=== PATIENT | male | born 1960 | race Caucasian/White ===

== ENCOUNTER → 2020-08-17 12:04 | Outpatient (CLI) | payer OTHER, SELFPAY ==
[2020-08-17 13:41] LABS: BUN Creatinine Ratio 17.4 (6-22); Blood Urea Nitrogen 20 mg/dL (9-20); Calcium 9.9 mg/dL (8.4-10.2); Carbon Dioxide 25 mmol/L (22-32); Chloride 105 mmol/L (98-107); Estimated Glomerular Filt Rate > 60.0 mL/min (>60); Glucose 89 mg/dL (80-110); HEMOLYSIS < 15 (0-50); Potassium 4.8 mmol/L (3.4-5.1); Sodium 139 mmol/L (137-145)
[2020-08-17 14:12] LABS: Prostate Specific Antigen 11.1 ng/mL (0.10-4.00)
--- NOTE | 2020-08-17 14:27 | DI.CT.S_ITS ---
PROCEDURE: CT CHEST ABD PEL W CON INDICATIONS: Malignant neoplasm of prostate TECHNIQUE: After the administration of oral and intravenous contrast, axial sections acquired from the supraclavicular neck to the pubic symphysis. Coronal and sagittal reformats were performed. For radiation dose reduction, the following was used: automated exposure control, adjustment of mA and/or kV according to patient size. COMPARISON:[place], [place], [place] BONE SCAN WHOLE BODY, 02/21/2020, 13:03. FINDINGS: Image quality: Excellent. CHEST: Lungs and pleura: No acute air space opacities. No pleural effusions or pneumothorax. Central and peripheral airways are patent and normal in caliber. Mediastinum: Heart size is normal. No pericardial effusion. No mediastinal adenopathy by size criteria. Thoracic aorta and central pulmonary arteries are normal in size. Esophagus is normal in caliber. No hiatal hernia. The coronary arteries have atherosclerotic calcifications. Chest wall: No axillary or supraclavicular adenopathy by size criteria. Thyroid gland is normal . ABDOMEN: Solid organs: Liver: The liver has no mass or intrahepatic biliary ductal dilatation. There is a 2 centimeter cyst of the right lobe of the liver and a 1 centimeter cyst of the left lobe of the liver. The portal vein and hepatic veins are patent. Biliary: The gallbladder has no gallstones, pericholecystic fluid, gallbladder wall thickening, or surrounding inflammatory change. Pancreas: The pancreas has no mass or ductal dilatation. There is no surrounding inflammation. Spleen: Normal size. There are no masses. Adrenals: No hypertrophy or nodules. Kidneys: No obstructive calculus or hydronephrosis. No solid mass. No cystic mass. Bowel: The distal esophagus and stomach are normal. The small bowel has a normal caliber and appearance. The terminal ileum is normal. The large bowel has a normal caliber and appearance. No free fluid or air. Nodes and vessels: No retroperitoneal or mesenteric adenopathy by size criteria. Aorta and inferior vena cava are normal in size. Abdominal wall: No abdominal wall mass or hernia. PELVIS: Genitourinary: The bladder has no wall thickening or mass. No bladder calcifications. The prostate is enlarged measuring 7.1 centimeters in diameter. Abdominal wall: No inguinal hernias or adenopathy. BONES: A 4 millimeter sclerotic focus in the right inferior pubic bone adjacent to the midline and a 4 millimeter sclerotic focus lateral to the right sacroiliac joint are likely small bone islands but small early foci of metastatic disease cannot be excluded. There is no prior imaging for comparison. The right hip has trochanteric femoral fixation. There are degenerative changes of both hips. The lumbar spine has mild degenerative changes. No vertebral body compression fractures. IMPRESSION: 1. A few 4 millimeter sclerotic foci in the pelvis as described above are likely bone islands, however cannot exclude small metastatic foci. 2. Otherwise no evidence of metastatic disease to the chest, abdomen, or pelvis. 3. Enlarged prostate. Dictated by: Francis Watkins M.D. on 08/17/2020 at 17:01 Approved by: Francis Watkins M.D. on 08/17/2020 at 17:17
== END ==
PROVIDERS: PCP Family Medicine; Referring Provider Specialist; Visit Provider Specialist
DX: C61 Malignant neoplasm of prostate (principal); R39.9 Unspecified symptoms and signs involving the genitourinary system
CPT/HCPCS: 36415; 71260; 74177; 80048; 84153

== ENCOUNTER → 2020-09-14 07:57 | Outpatient (CLI) | payer OTHER, SELFPAY ==
[2020-09-14 13:47] LABS: COVID19 -Nasal RAPID Negative (Negative)
== END ==
PROVIDERS: PCP Family Medicine; Referring Provider Specialist; Visit Provider Specialist
DX: Z20.822 Contact with and (suspected) exposure to COVID-19 (principal)
CPT/HCPCS: 87635

== ENCOUNTER 2020-09-17 07:22 | Inpatient (IN) | payer OTHER, SELFPAY ==
[2020-09-11 08:31] VITALS: BMI 34.9
[2020-09-17] VITALS (22 sets, daily range): BP systolic 54–146; BP diastolic 31–78; PULSE 65–117; RESP 12–18; TEMP 36.1–37.2; O2SAT 87–99; BMI 34.9
--- NOTE | 2020-09-17 | PATH_ITS ---
[facility] Accession Number: [id number] . 01 Material submitted: . PART A: pelvis - RIGHT PELVIC NODE PART B: pelvis - LEFT PELVIC NODE PART C: prostate - PROSTATE PART D: seminal vesicle - LEFT SEMINAL VESICLE . 02 Diagnosis: A. Right Pelvic Node, Dissection: Two lymph nodes negative for metastatic carcinoma (0/2) by H/E stain. . B. Left Pelvic Node, Dissection: Two lymph nodes negative for metastatic carcinoma (0/2) by H/E stain. . C. Prostate, Radical Retropubic Prostatectomy (Weight 68 grams): Positive for prostatic adenocarcinoma. . Please see Cancer Case Summary . D. Left Seminal Vesicle: Negative for tumor. . . CANCER CASE SUMMARY . Specimen: Radical retropubic prostatectomy Prostatic weight: 68 grams. Prostatic size in centimeters: 6.5 x 6.0 x 4.5 cm. . Tumor: Histologic type: Acinar adenocarcinoma. Histologic grade: Grade group 2 (Williams score 3+4=7/10). Percentage of pattern 4: 6-10% of invasive tumor. Minor tertiary pattern 5: Not applicable. Intraductal carcinoma: Not identified. Cribriform glands: Not identified. Treatment effect: Not identified. . Tumor quantitation Estimated percentage of prostate involved by tumor: 11-20%. Extraprostatic extension: Not identified. Urinary bladder neck invasion: Not identified. Seminal vesicle invasion: Not identified. Lymphovascular invasion: Not identified. . Margins Margin status: All margins negative for invasive carcinoma. . Regional lymph nodes Regional lymph node status: All regional lymph nodes negative for tumor. Number of lymph nodes examined: Four. . Distant metastasis: Cannot be determined (no additional tissue submitted for pathologic evaluation). . Pathologic stage classification (pTNM, AJCC 8th Edition): pT2 pN0 . Additional findings: Nodular prostatic hyperplasia, patchy chronic inflammation. [facility] 09/25/2020 1418 Local . 02 Electronically signed: . Negra Crews MD, Pathologist NPI- [id number] . 01 Gross description: . A. Received in formalin, labeled right pelvic node consists of a 4.0 x 2.6 x 1.5 cm escoto-yellow fragment of adipose tissue with a 2.9 x 1.5 x 1.0 cm escoto lymph node. The specimen is entirely submitted. . A1-A2: Lymph node, serially sectioned. A3: Remaining adipose tissue. . B. Received in formalin, labeled left pelvic node consists of two escoto-pink lymph nodes with attached adipose tissue measuring 1.5 x 1.0 x 0.9 cm and 4.1 x 2.0 x 0.9 cm. The specimen is entirely submitted. . B1: Smaller lymph node, serially sectioned. B2-B4: Larger lymph node, serially sectioned. B5: Remaining adipose tissue. . C. Received in formalin, labeled prostate consists of a 68-gram prostate measuring 6.0 cm from apex to base by 6.5 cm from right to left by 4.5 cm from anterior to posterior. The external surface is escoto-pink with fibrinous adhesions and focal cautery artifact. The partially attached right seminal vesicle measures 2.5 x 2.5 x 1.2 cm. The right and left vas differentia and left seminal vesicle are not identified. The specimen is inked as follows: Right anterior blue, right posterior green, left anterior yellow and left posterior black. The specimen is serially sectioned from apex to base into 11 slices to reveal escoto-pink, focally cystic cut surfaces with periurethral ill-defined nodularity. There are multiple red-brown corpora amylacea present ranging from 0.1-0.5 cm (within slices 4-6). Track Mechanic sections are submitted. . C1-C2: Slice 1, right apical margin, perpendicularly sectioned. C3-C4: Slice 1, left apical margin, perpendicularly sectioned. C5-C6: Slice 2, right prostate, bisected. C7-C8: Slice 2, left prostate, bisected. C9-C10: Slice 4, right prostate, bisected. C11-C12: Slice 4, left prostate, bisected. C13-C16: Slice 6, right prostate, quadrisected. C17-C19: Slice 6, left prostate, trisected. C20-C21: Slice 10, right prostate, bisected. C22-C23: Slice 10, left prostate, bisected. C24-C26: Slice 11, right base margin, perpendicularly sectioned. C27-C29: Slice 11, left base margin, perpendicularly sectioned. C30: Track Mechanic right seminal vesicle. . D. Received in formalin, labeled left seminal vesicle consists of a 3.0 x 2.0 x 1.5 cm escoto-pink disrupted seminal vesicle. Track Mechanic sections are submitted in cassette D1. . (EA:[id number]) /MRV 09/21/2020 1500 Local . 02 Microscopic: . An immunohistochemistry study is performed to evaluate the cells of interest. The control stains show appropriate reactivity. . RESULTS: Block C19: High molcular weight+p63 IHC stain: Positive around region of interest. . The presence of high molecular weight cytokeratin and p63 around the elements of interest mitigate against the presence of prostatic adenocarcinoma at this focus. . * This test was developed and its performance characteristics determined by [facility]. It has not been cleared or approved by the U.S. Food and Drug Administration. The FDA has determined that such clearance or approval is not necessary. This test is used for clinical purposes. It should not be regarded as investigational or for research . 02 Pathologist provided ICD-10: C61 . 02 CPT . 501920, 293125, 390518, 877371, [id number] Performed at: 01 [facility] Cytology [address] [id number] MD Aj Jin MD Phone: [phone] Performed at: [address] [id number] MD Katlin Schafer MD Phone: [phone]
[2020-09-17] MEDS: LACTATED RINGERS 1,000 ML 42 ML IV ×3 (08:19→12:02)
--- NOTE | 2020-09-17 08:38 | PM.PREOP ---
Pre-operative Note Interval Note History & Physical reviewed/Exam performed by Physician: Yes Changes to H&P: No
[2020-09-17 08:39] LABS: Hemoglobin 14.9 g/dL (13.5-17.5); Mean Corpuscular HGB Conc 33.7 % (30-36); Mean Corpuscular Hemoglobin 29.3 PG (26-34); Mean Corpuscular Volume 86.7 fL (80-100); Platelet Count 183 X10^3/uL (150-400); Red Blood Cell Count 5.08 X10^6/uL (4.5-5.9); Red Cell Distribution Width 13.7 % (11.6-14.8); White Blood Cell Count 6.6 X10^3/uL (4.5-11.0)
[2020-09-17] MEDS: CEFAZOLIN 1 GM VIAL 2 GM IV (09:50)
--- NOTE | 2020-09-17 10:43 | SUR.OPER ---
Supine on padded OR bed, head on pillow, arms secured on padded arm boards at <90 degrees abduction, legs uncrossed, pillow under knees tape over blanket at lower thigh, tape over blanket over lower legs. Iliac crest at break of table.
[2020-09-17] MEDS: BUPIVACAINE LIPOSOME 266 MG/20 ML VIAL INJ (10:52)
[2020-09-17] MEDS: ACETAMINOPHEN IV 1,000 MG/100 ML VIAL 400 MG IV (12:36)
--- NOTE | 2020-09-17 13:32 | P.OP_ITS ---
Operative Date/Time/Diagnoses Date of procedure: 09/17/20 Time of procedure: 13:32 Pre-op diagnosis: Prostate cancer Post-op diagnosis: same Procedure & Clinicians Procedure: 1. Radical retropubic prostatectomy and bilateral pelvic lymphadenectomy Same procedure as scheduled: Yes Indications: 1. Prostate cancer Mailing Machine Assistant: Cheryl Her Click Yes if Unassisted: No Anesthesia Type: General, Spinal (Duramorph spinal) and Local (1.33% Exparel) Operative Notes Findings: The abdominal wall tissue planes were unremarkable. The prostate was significantly enlarged, at least 60 g. Seminal vesicles were difficult to dissect due to probable reactive changes, but neoplasm cannot be ruled out. Closure Type: primary Specimen(s): other (1. Prostate with attached seminal vesicles 2. Bilateral pelvic lymph nodes) Applied: catheter (20. Chilean silicone catheter) and drain(s) (15. Chilean Gene drain) Estimated Blood Loss (mL): 300 Blood products transfused: none Tourniquet time (min): 0 Procedure in detail: The patient was positioned in supine and was administered general anesthesia following successful placement of Duramorph spinal anesthesia. The abdomen, genitalia, and groin were then prepped and draped in sterile fashion. A 20 [place]an Pérez catheter was then inserted lower urinary tract and placed to gravity drainage. A midline infraumbilical incision was then made in the midline low abdominal wall was divided using sharp, blunt, and cautery technique. The pelvic retroperitoneum was then entered and the space of Retzius and lateral pelvic sidewalls were then cleared of fat and loose attachments. Bilateral pelvic lymph node dissection was then undertaken using the same steps and maneuvers as follows: Thin adventitia overlying external iliac vein was identified, isolated and divided along its length. The tissue was then swept posteriorly and medially out of the obturator fossa. The LigaSure Impact device was used where needed for hemostasis and lymphostasis. Each james packet was then labeled as to their site of procurement and sent to pathology for routine gross and microscopic examination. The endopelvic fascia was then carefully divided on either side of the prostate. The dorsal venous complex was then isolated and divided using the LigaSure Impact device. The area of urethra between the prostatic apex in membranous segment was then identified, isolated and divided just distal to prostatic apex. Appropriate plane was developed along the prostatic fascia at the apex and this was divided along the length of the prostate. A sponge stick was then used to carefully role the prostatic fascia off the lateral in posterior lateral aspect of the prostate. Next, the vascular pedicles were individually isolated in bundles and transected either using the LigaSure Impact device or with large locking, hemostatic clips. Next, the bladder neck and prostatic base interface was identified and the bladder neck was divided in line with its fibers. The appropriate plane was de veloped and the urethra was isolated the bladder neck and then divided. Posterior bladder neck was then carefully divided from the prostatic base. Now the prostate was reflected superiorly and anteriorly and denies MVAs fascia was divided and access to the seminal vesicles was then provided. Medium hemo lock clips were utilized for hemostasis and each of the seminal vesicles were dissected with significant difficulty from their fossa. The ampulla vas was identified on either side each were isolated and large plastic, hemo lock clips were applied proximally distally and the structures were divided sharply between the 2 clips. The prostate and attached seminal vesicles were then handed off the field for routine gross and microscopic examination. Now the bladder neck was reconstructed by effacing the mucosa with interrupted 4-0 Monocryl. A ?[place]? repair was done to reduce the diameter of the bladder neck using 2-0 Monocryl. The vesicourethral anastomosis was then conducted by placing 2-0 Monocryl from outside in on the urethral stump in from inside to out at the bladder neck at the corresponding positions of 2, 4, 6, 8, and 10:00 o'clock. A 20 Chilean silicone catheter was then inserted in lower urinary tract and passed into the bladder through the neobladder neck under direct visualization. The balloon was then inflated 15 cc and gentle traction was applied. The anastomotic sutures were then tied down successively thus completing the vesicourethral anastomosis. The Pérez catheter was then it irrigated and there was no significant presence of blood or clot. It was then attached to gravity drainage. Next, a 15 Chilean Gene drain was major gifts officer separate stab incision to the right of the midline incision and that is and position in the space of Retzius the drain was secured to the skin with 2-0 silk suture using a Surinder Sandal technique. The drain was then placed to bulb self suction. The midline abdominal fascia was then closed with running 0 PDS beginning at each the superior and the inferior apex and then tined 1 another together approximately the midpoint of the incision. The subcutaneous Fredy's fascia was then reapproximated with a running 2-0 Vicryl. Finally the skin was reapproximated using a running subcuticular 4-0 Monocryl. Telfa gauze was then trimmed and tailored to appropriate sizes for the incision line in the drain site and were applied. Transfer care to Op site dressing was then applied over each of these areas for a Bioclusive finish. The patient was then awakened, transferred to [facility], and transferred recovery in stable condition. Complications: none Post-operative Condition: stable Plan for aftercare: Admit to acute care.
--- NOTE | 2020-09-17 14:50 | SUR.PHASEI ---
Call report to floor, asked to hold pt 1/2 hour due to shift change-
[2020-09-17] MEDS: LACTATED RINGERS 1,000 ML 125 ML IV (16:58)
[2020-09-17] MEDS: diphenhydrAMINE 50 MG/ML VIAL 25 MG IV ×2 (18:46→22:28)
[2020-09-17] MEDS: PRAVASTATIN 20 MG TABLET 40 MG PO (21:15)
[2020-09-17] MEDS: DULOXETINE 30 MG CAPSULE PO (21:16)
[2020-09-17] MEDS: lisinopriL 20 MG TABLET PO (21:16)
[2020-09-17] MEDS: ACYCLOVIR 400 MG TABLET PO (21:16)
[2020-09-17] MEDS: GABAPENTIN 600 MG TABLET 1200 MG PO (21:16)
[2020-09-17] MEDS: LORATADINE 10 MG TABLET PO (21:21)
[2020-09-17] MEDS: OXYCODONE IR 5 MG TABLET PO (21:21)
[2020-09-18] MEDS: LACTATED RINGERS 1,000 ML 125 ML IV ×3 (00:03→16:30)
[2020-09-18] MEDS: OXYCODONE IR 5 MG TABLET PO ×2 (01:15→06:58)
[2020-09-18] MEDS: diphenhydrAMINE 50 MG/ML VIAL 25 MG IV ×3 (01:16→10:23)
[2020-09-18 04:00] VITALS: BP 104/58; PULSE 85; RESP 16; TEMP 36.9; O2SAT 96
[2020-09-18] MEDS: GABAPENTIN 600 MG TABLET 1200 MG PO ×2 (08:06→20:52)
[2020-09-18] MEDS: ASPIRIN EC 81 MG TABLET PO (08:06)
[2020-09-18] MEDS: DULOXETINE 30 MG CAPSULE PO ×2 (08:06→20:52)
[2020-09-18] MEDS: ACYCLOVIR 400 MG TABLET PO ×2 (08:06→20:53)
[2020-09-18] MEDS: ACETAMINOPHEN 325 MG TABLET 650 MG PO (08:10)
[2020-09-18] MEDS: ENOXAPARIN 40 MG/0.4 ML SYRINGE SUBCUT (08:23)
[2020-09-18 09:30] VITALS: BP 100/50; PULSE 81; RESP 17; TEMP 36.9; O2SAT 95
--- NOTE | 2020-09-18 11:00 | CM.DANOTE ---
DCP: Case received, EMR reviewed and met with patient. Introduced self and role. Was able to obtain information from patient regarding his baseline activity status prior to his surgery. DCP assessment completed with information currently available. Patient is a 60 year old male who admitted yesterday morning to the care of the urology team. PCP: Dr. Dawn Payer: confirmed: [employer]. Patient came to the hospital via private vehicle for a surgical procedure. He had a radical retropubic prostatectomy. Patient has history of prostate cancer. Met with patient in his room. He is alert and oriented, pleasant. He resides in [place] with his spouse, Eliane. Confirmed that his primary care provider is Dr. Dawn. He is independent at his baseline, still drives, uses a cane upon occasion. P: DCP to continue to follow and will be available for any needs. Patient should be able to go home when he is medically stable. Bhavana Callahan RN/Jetting Machine Operator
[2020-09-18] MEDS: HYDROMORPHONE 0.5 MG INJ IV ×3 (12:52→19:50)
[2020-09-18 14:10] VITALS: BP 97/55; PULSE 77; RESP 18; O2SAT 93
--- NOTE | 2020-09-18 14:54 | PC.NURSE ---
A&Ox4. VSS besides BPs running low: 100/59, 97/55. Denies any dizziness or being lightheaded. Encouraged to continue drinking fluids along with his IV fluids. Pain was 9/10 and was given PRN IV 0.5 mg dilaudid which brought his pain down to a 2/10. Given a dose of IV diphehydramine for itching, which also provided relief. Slept most of this shift, waking for meals. Call light within reach, bed low.
[2020-09-18 16:42] VITALS: BP 114/63; PULSE 73; RESP 16; TEMP 36.4
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
[2020-09-18 20:52] VITALS: BP 117/66; PULSE 73
[2020-09-18] MEDS: LORATADINE 10 MG TABLET PO (20:52)
[2020-09-18] MEDS: lisinopriL 20 MG TABLET PO (20:52)
[2020-09-18] MEDS: PRAVASTATIN 20 MG TABLET 40 MG PO (20:53)
[2020-09-18 21:05] VITALS: BP 117/66; PULSE 73; RESP 18; TEMP 37.3; O2SAT 98
[2020-09-18] MEDS: HYDROMORPHONE 2 MG TABLET PO (22:32)
[2020-09-19 00:40] VITALS: BP 121/63; PULSE 76; RESP 18; TEMP 37.6; O2SAT 98
[2020-09-19] MEDS: HYDROMORPHONE 2 MG TABLET PO ×4 (01:37→12:11)
[2020-09-19 05:00] VITALS: BP 109/64; PULSE 81; RESP 18; TEMP 36.3; O2SAT 98
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
[2020-09-19] MEDS: ACYCLOVIR 400 MG TABLET PO (08:08)
[2020-09-19] MEDS: GABAPENTIN 600 MG TABLET 1200 MG PO (08:08)
[2020-09-19] MEDS: ASPIRIN EC 81 MG TABLET PO (08:08)
[2020-09-19] MEDS: ENOXAPARIN 40 MG/0.4 ML SYRINGE SUBCUT (08:09)
[2020-09-19] MEDS: ACETAMINOPHEN 325 MG TABLET 650 MG PO ×2 (08:09→12:10)
[2020-09-19] MEDS: DULOXETINE 30 MG CAPSULE PO (08:09)
[2020-09-19 08:31] VITALS: BP 118/56; PULSE 76; RESP 12; TEMP 36.7; O2SAT 95
[2020-09-19] MEDS: BISACODYL 10 MG SUPP PR (09:26)
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
--- NOTE | 2020-09-19 14:02 | CM.DPC ---
DCP Discharge Home Per Urologist, pt tolerating diet and ambulating independently with some bowel tones and able to transition to oral meds with pain controlled and stable for d/c home with broussard cath for 2 weeks post discharge and outpt follow up. No identified barriers to discharge. Pathology still pending and pt to follow up with Urologist after discharge. Plan: Patient to d/c home today via POV and outpt follow up with Urologist and no further d/c planning needs identified. ANTONETTE Michaud
--- NOTE | 2020-09-19 14:10 | PC.NURSE ---
A&Ox4. VSS. Pain controlled with PRn dilaudid. Discharge instructions reviewed, IV removed, catheter care explained, drain removed. driving home. Off of [address].
== END 2020-09-19 14:10 | disposition home or self-care (01) | DRG 707 ==
PROVIDERS: Admitting Provider Specialist; PCP Family Medicine; Referring Provider Specialist; Visit Provider Specialist
PROC: 0VT00ZZ Resection of Prostate, Open Approach (ICD-10-PCS; principal; 2020-09-17 09:15)
DX: C61 Malignant neoplasm of prostate (principal); N40.1 Benign prostatic hyperplasia with lower urinary tract symptoms; N13.8 Other obstructive and reflux uropathy; I10 Essential (primary) hypertension; E78.5 Hyperlipidemia, unspecified; Z20.822 Contact with and (suspected) exposure to COVID-19
CPT/HCPCS: 36415; 55845; 82962; 85027; 86850; 86900; 86901; 87086; 87635; 93005; C9803; C9290; J0131; J0690; J1170; J1200; J1650; J2250; J2274; J2704; J3010